=== PATIENT | female | born 1935 | race African-American/Black ===

== ENCOUNTER 2021-06-20 13:42 | Inpatient (IN) | payer MEDICARE, BC ==
[~2021-06-20] VITALS: Ht 152.4 cm; Wt 71.7 kg
--- NOTE | 2021-06-20 14:14 | NUR ---
RICKI DAUGHTER [phone] HX STROKE 2018 AFIB C-DIFF LIVER DMII ALL PCN IN DR. YRN CHERY IN [facility] [phone] MIGUEL [place]KE[place] DAUGHTER [phone]
--- NOTE | 2021-06-20 14:19 | NUR ---
DR. YRN CHERY IN [facility] [phone] OFFICE [phone]
--- NOTE | 2021-06-20 15:56 | NUR ---
R HAND #22G S/L; PATENT AND INTACT. BLOOD COLLECTED AND SENT TO LAB
[2021-06-20 16:20] LABS: BASOPHILS % (AUTO) 0.5 % (0.0-2.0); EOSINOPHILS % (AUTO) 0.7 % (0.0-6.0); HEMATOCRIT 41 % (33-45); HEMOGLOBIN 13.5 g/dL (11.5-14.8); LYMPHOCYTES # (AUTO) 1.9 K/uL (0.8-4.8); MEAN CORPUSCULAR HGB CONC 33 g/dl (31.0-36.0); MEAN CORPUSCULAR VOLUME 86 fL (82-100); MONOCYTES # (AUTO) 0.8 K/uL (0.1-1.30); MONOCYTES % (AUTO) 9.1 % (2.0-12.0); NEUTROPHILS # (AUTO) 5.6 K/uL (1.8-8.9); NEUTROPHILS % (AUTO) 66.7 % (43.0-81.0); PLATELET COUNT (AUTO) 341 K/uL (150-450); WHITE BLOOD COUNT (AUTO) 8.4 K/uL (4.3-11.0)
[2021-06-20 16:38] LABS: CALCIUM, SERUM 9.7 mg/dL (8.5-10.1); CREATININE 1.3 mg/dL (0.6-1.3); POTASSIUM 6.1 mmol/L (3.5-5.1)
[2021-06-20 16:52] LABS: ALBUMIN 2.7 g/dL (3.4-5.0); BILIRUBIN,DIRECT 3.8 mg/dL (0.0-0.2); BILIRUBIN,TOTAL 7.4 mg/dL (0.2-1.0); TOTAL PROTEIN, SERUM 8.1 g/dL (6.4-8.2)
[2021-06-20] MEDS ORDERED: IV NS 0.9% 250 ML IV ONE (17:01)
[2021-06-20] MEDS ORDERED: IOHEXOL-300 100 ML VIAL IV ONE (17:01)
[2021-06-20] MEDS ORDERED: CT SWABBABLE VALVE TRANS SET 1 EA INFUS.SET MC ONE (17:01)
--- NOTE | 2021-06-20 17:03 | NUR ---
ADLS DONE; PT KEPT CLEAN AND DRY
--- NOTE | 2021-06-20 17:03 | NUR ---
URINE COLLECTED AND SENT TO LAB
[2021-06-20] MEDS ORDERED: IV LR 1000 ML 1,000 ML IV ONE ×2 (18:00→18:30)
--- NOTE | 2021-06-20 18:26 | NUR ---
DAUGHTER MILY [phone]
--- NOTE | 2021-06-20 18:50 | NUR ---
MOVE SHEET SUBMITTED
--- NOTE | 2021-06-20 18:55 | NUR ---
[facility] CALLED MAP AND CHART MOUNTER PAGED.
[2021-06-20] MEDS ORDERED: ACETAMINOPHEN 325 MG TABLET PO PRN (19:30)
[2021-06-20] MEDS ORDERED: ONDANSETRON HCL/PF 4 MG/2 ML VIAL IVP PRN (19:30)
[2021-06-20] MEDS ORDERED: MAGNESIUM HYDROXIDE 30 ML UDC PO PRN (19:30)
[2021-06-20] MEDS ORDERED: Z GUARD REMEDY 4 OZ OINT TP PRN (19:30)
[2021-06-20] MEDS ORDERED: MAG HYDROX/AL HYDROX/SIMETH 30 ML UDC PO PRN (19:30)
[2021-06-20 19:32] LABS: BILIRUBIN,URINE MODERATE (NEGATIVE); COLOR,URINE YELLOW (YELLOW); LEUKOCYTE ESTERASE ,URINE NEGATIVE (NEGATIVE); NITRITE, URINE NEGATIVE (NEGATIVE); PH,URINE 5.5 (5.0-8.0); PROTEIN,URINE 30 mg/dl (NEGATIVE); UGLUCOSE >=1000 mg/dL (NEGATIVE); UROBILINOGEN,URINE 0.2 EU/dL (0.2)
[2021-06-20 19:34] LABS: BACTERIA,URINE Few /HPF (None Seen); RBC,URINE 0-3 /HPF (0-2); SQUAMOUS EPITHELIAL CELL,UR Few /HPF (None Seen); WBC,URINE 0-2 /HPF (0-3)
[2021-06-20 19:35] LABS: FINE GRANULAR CASTS,URINE Few /LPF (None Seen)
--- NOTE | 2021-06-20 19:42 | NUR ---
COVID ANTIGEN SWAB COLLECTED AND SENT TO LAB
--- NOTE | 2021-06-20 20:05 | NUR ---
PER DAUGHTER PT TAMY VACCINATED TODAY PREVIOUS VACCINE j&j IN AUGUST 2020
--- NOTE | 2021-06-20 23:23 | NUR ---
REPORT GIVEN TO CRIS MCDUFFIE 3 TRANQUILLITY.
[2021-06-20 23:35] VITALS: BP 136/75
--- NOTE | 2021-06-20 23:58 | NUR ---
MS RN NOTES PT IS A FINNISH 86 YEAR OLD FEMALE. A/O X2-3 ABLE TO MAKE NEED KNOWN. NO PAIN DISCOMFORT NOTED AT THIS TIME. PT NOTED WITH R HAND 22G RUINING D5 1/2 NS @ 75 ML/HR SKIN ASSESSMENT DONE PT NOTED WITH SACRAL REDNESS PICTURE TAKEN AND PLACED IN CHART. MEPILEX APPLIED TO PROTECT AREA. PT ABDOMEN NON TENDER AND SOFT. PT SKIN WARM TO THE TOUCH PT NOTED TO BE JAUNDICE NOTED WITH YELLOW SCLERA WELL. PT ORIENTED TO ROOM AND UNIT. ALL NEEDS ATTENDED TO AT THIS TIME.
[2021-06-21] VITALS: BP 136/75
[2021-06-21] MEDS ORDERED: FURO20TA4 PO (00:49)
[2021-06-21] MEDS ORDERED: INSU100V27 SQ (00:49)
[2021-06-21] MEDS ORDERED: EMPA10TA PO (00:49)
[2021-06-21] MEDS ORDERED: DULA0.75 SQ (00:49)
[2021-06-21] MEDS ORDERED: LOSA25TA27 PO (00:49)
[2021-06-21] MEDS ORDERED: PANT40TA49 PO (00:49)
[2021-06-21] MEDS ORDERED: LEVO50TA8 PO (00:49)
[2021-06-21] MEDS ORDERED: INSU100V7 SQ (00:49)
[2021-06-21] MEDS ORDERED: ESCI20TA PO (00:49)
[2021-06-21] MEDS ORDERED: FAMO20TA8 PO (00:49)
[2021-06-21] MEDS ORDERED: LATA2.5D2 EACHEYE (00:49)
[2021-06-21] MEDS ORDERED: ATOR80TA PO (00:49)
[2021-06-21] MEDS ORDERED: METO25TA6 PO (00:49)
[2021-06-21] MEDS ORDERED: APIX2.5T PO (00:49)
--- NOTE | 2021-06-21 01:29 | NUR ---
MS RN NOTES REPORTED TO PELLET PREPARATION OPERATOR DOCTOR REGARDING PT POTASSIUM LEVEL 6.1. PELLET PREPARATION OPERATOR DR REQUESTED A STAT REDRAW ALSO ORDERS MILD SLIDING SCALE ACHS PT IS DIABETIC. CONSENT WAS OBTAINED FROM DAUGHTER GLORIA FOR MRCP WO CONTRAST WELL. PER DAUGHTER PT WISHSES TO BE DNR AND THEY HAVE PAPERWORK AT [employer] INSTRUCTED DAUGHTER TO PLEASE BRING PAPERWORK IN. WILL ORDER A PIT LABORER CONSULT. PT IS NPO AT THIS TIME FOR MRCP SINCE MIDNIGHT. PT PUT ON TELE MONITOR FOR OBSERVATION POTASSIUM IS HIGH PT IS SR IN THE 80S AT THIS TIME.
[2021-06-21] MEDS ORDERED: DEXTROSE 50%-WATER 50 ML DISP.SYRIN IV PRN (01:30)
--- NOTE | 2021-06-21 01:35 | NUR ---
MS RN NOTES CALLED LAB TO CONFIRM THEY RECEIVED THE ORDER FOR THE STAT POTASSIUM CONFIRMED AND WILL COME AND DRAW IT. WILL CONTINUE TO MONITOR.
[2021-06-21] MEDS: BLOOD SUGAR DIAGNOSTIC 1 EACH STRIP IN SCH ×5 (01:43→22:50)
[2021-06-21] MEDS: IV D5/0.45 NACL 1,000 ML IV PRN ×2 (01:44→19:45)
--- NOTE | 2021-06-21 03:43 | NUR ---
MS RN NOTES LET RAILROAD SURVEYOR DOCTOR KNOW CRITICAL LAB RESULT POTASSIUM 2.[address] DUE TO PREVIOUS LEVEL BEING HIGH HAVE THE MORNING LABS DRAW NOW AND HAVE POTASSIUM REDRAWN TO CONFIRM PT POTASSIUM IS LOW IF REDRAW SHOWS LOW K GIVE 40 MEQ IV. PER RAILROAD SURVEYOR HOLD INSULIN FOR NOW IT COULD LOWER PTS POTASSIUM. CALLED LAB TO HAVE LABS DRAWN COIL WINDING SUPERVISOR AT PT BEDSIDE AT THIS TIME DRAWING LABS. PT IN NO DISTRESS AT THIS TIME SR 80S WILL CONTINUE TO MONITOR,
[2021-06-21 04:04] LABS: BASOPHILS % (AUTO) 0.4 % (0.0-2.0); EOSINOPHILS % (AUTO) 1.2 % (0.0-6.0); HEMATOCRIT 38 % (33-45); HEMOGLOBIN 12.6 g/dL (11.5-14.8); LYMPHOCYTES # (AUTO) 1.8 K/uL (0.8-4.8); LYMPHOCYTES % (AUTO) 24.8 % (20.0-44.0); MEAN CORPUSCULAR HGB CONC 33 g/dl (31.0-36.0); MEAN CORPUSCULAR VOLUME 84 fL (82-100); MONOCYTES # (AUTO) 0.7 K/uL (0.1-1.30); MONOCYTES % (AUTO) 9.4 % (2.0-12.0); NEUTROPHILS # (AUTO) 4.7 K/uL (1.8-8.9); NEUTROPHILS % (AUTO) 64.2 % (43.0-81.0); PLATELET COUNT (AUTO) 314 K/uL (150-450); WHITE BLOOD COUNT (AUTO) 7.3 K/uL (4.3-11.0)
[2021-06-21 04:25] LABS: ALANINE AMINOTRANSFERASE 320 U/L (12-78); ALBUMIN 2.5 g/dL (3.4-5.0); ASPARTATE AMINOTRANSFERASE 411 U/L (15-37); BILIRUBIN,DIRECT 5.5 mg/dL (0.0-0.2); BILIRUBIN,TOTAL 6.7 mg/dL (0.2-1.0); CALCIUM, SERUM 9.4 mg/dL (8.5-10.1); CARBON DIOXIDE 23 mmol/L (21-32); CHLORIDE 98 mmol/L (98-107); CREATININE 1.3 mg/dL (0.6-1.3); GLUCOSE 99 mg/dL (74-106); MAGNESIUM 1.9 mg/dL (1.8-2.4); PHOSPHORUS 2.8 mg/dL (2.5-4.9); SODIUM SERUM 137 mmol/L (136-145); TOTAL PROTEIN, SERUM 7.1 g/dL (6.4-8.2); UREA NITROGEN, BLOOD 15 mg/dL (7-18)
[2021-06-21 04:26] LABS: ALKALINE PHOSPHATASE 1216 U/L (46-116)
[2021-06-21 04:28] LABS: POTASSIUM 2.4 mmol/L (3.5-5.1)
[2021-06-21] MEDS ORDERED: POTASSIUM CL. PREMIX PERIPHER. 50 ML ONE ×2 (04:52→05:59)
[2021-06-21] MEDS ORDERED: POTASSIUM CHLORIDE 10 MEQ/50 ML PREMIXED IVPB FOR PERIPHERAL LINE IV ONE (05:00)
[2021-06-21] MEDS: Potassium Chloride 10 MEQ in IV D5W 50 ML IV SCH ×4 (05:10→10:04)
[2021-06-21 06:23] VITALS: BP 128/72
--- NOTE | 2021-06-21 06:49 | NUR ---
MS RN NOTES A/O X2-3 ABLE TO MAKE NEED KNOWN. NO PAIN DISCOMFORT NOTED AT THIS TIME. PT NOTED WITH R HAND 22G RUINING D5 1/2 NS @ 75 ML/HR PT ABDOMEN NON TENDER AND SOFT. PT SKIN WARM TO THE TOUCH PT NOTED TO BE JAUNDICE NOTED WITH YELLOW SCLERA WELL. PT NPO AT THIS TIME FOR MRCP WO CONTRAST.CONSENT OBTAINED PLACED IN CHART. ALL NEEDS ATTENDED TO. KEPT CLEAN AND DRY AT ALL TIMES. WILL ENDORSE CRAE TO DAY SHIFT NURSE.
[2021-06-21] MEDS: INSULIN REGULAR, HUMAN 100 UNIT/ML 3 ML VIAL SQ PRN ×3 (07:09→22:55)
--- NOTE | 2021-06-21 07:30 | NUR ---
MS RN OPENING NOTES RECEIVED PATIENT ON BED AWAKE AND A/O X3. ON ROOM AIR TOLERATING WELL. NO SOB NOTED. NOT IN DISTRESS. WITH NO COMPLAINTS OF PAIN OR DISCOMFORT AT THIS TIME. WITH IV ACCESS AT RIGHT HAND G22 WITH IVF D5 1/2NS AT 75ML/HR INFUSING WELL. SAFETY MEASURES IN PLACED. CALL LIGHT WITHIN REACH. BED ON LOWEST LOCKED POSITION, SIDE RAILS UP X2. WILL CONTINUE TO MONITOR.
[2021-06-21 08:00] VITALS: BP 141/73
[2021-06-21] MEDS: MORPHINE SULFATE INJ 2 MG/ML DISP.SYRIN IV PRN (08:01)
[2021-06-21 08:10] LABS: EOSINOPHILS % (MANUAL) 2 % (0-4); LYMPHOCYTES % (MANUAL) 28 % (16-48); MONOCYTES % (MANUAL) 10 % (0-11.0); NEUTROPHILS % (MANUAL) 60 (42-76)
[2021-06-21] MEDS: ENOXAPARIN SODIUM 40 MG/0.4 ML DISP.SYRIN SQ SCH ×2 (11:18→21:57)
[2021-06-21 16:00] VITALS: BP 158/70
[2021-06-21] MEDS: POTASSIUM CL. PREMIX PERIPHER. 50 ML IV SCH ×2 (16:26→19:40)
--- NOTE | 2021-06-21 19:30 | NUR ---
MS RN CLOSING NOTES PATIENT ON BED RESTING AND A/O X3. ON ROOM AIR TOLERATING WELL. NO SOB NOTED. NOT IN DISTRESS. WITH NO COMPLAINTS OF PAIN OR DISCOMFORT AT THIS TIME. WITH IV ACCESS AT RIGHT HAND G22 WITH IVF D5 1/2NS AT 75ML/HR INFUSING WELL. SAFETY MEASURES IN PLACED. CALL LIGHT WITHIN REACH. BED ON LOWEST LOCKED POSITION, SIDE RAILS UP X2. WILL ENDORSE TO NEXT SHIFT FOR NEL.
[2021-06-21 20:00] VITALS: BP 120/50
[2021-06-21] MEDS: FAMOTIDINE (20 MG) 20 MG TABLET PO SCH (21:55)
[2021-06-22] VITALS: BP 123/66
[2021-06-22] MEDS: POTASSIUM CL. PREMIX PERIPHER. 50 ML IV SCH ×2 (00:58→02:14)
[2021-06-22 04:00] VITALS: BP 162/80
[2021-06-22] MEDS: BLOOD SUGAR DIAGNOSTIC 1 EACH STRIP IN SCH ×4 (06:21→22:03)
[2021-06-22] MEDS: INSULIN REGULAR, HUMAN 100 UNIT/ML 3 ML VIAL SQ PRN ×4 (06:27→22:57)
[2021-06-22 06:37] LABS: BASOPHILS % (AUTO) 0.4 % (0.0-2.0); EOSINOPHILS % (AUTO) 1.3 % (0.0-6.0); HEMATOCRIT 36 % (33-45); LYMPHOCYTES # (AUTO) 1.4 K/uL (0.8-4.8); LYMPHOCYTES % (AUTO) 28.1 % (20.0-44.0); MEAN CORPUSCULAR HGB CONC 33 g/dl (31.0-36.0); MEAN CORPUSCULAR VOLUME 85 fL (82-100); MONOCYTES # (AUTO) 0.6 K/uL (0.1-1.30); MONOCYTES % (AUTO) 10.9 % (2.0-12.0); NEUTROPHILS # (AUTO) 3.1 K/uL (1.8-8.9); NEUTROPHILS % (AUTO) 59.3 % (43.0-81.0); PLATELET COUNT (AUTO) 270 K/uL (150-450); RED BLOOD CELL COUNT(AUTO) 4.27 MIL/uL (4.0-5.2); WHITE BLOOD COUNT (AUTO) 5.2 K/uL (4.3-11.0)
--- NOTE | 2021-06-22 07:04 | NUR ---
MS RN CLOSING NOTES: PATIENT IS CURRENTLY IN BED SLEEPING. PATIENT HAS NO S/S OF DISTRESS. RESPIRATION EVEN AND UNLABORED WITH EQUAL RISE AND FALL OF THE CHEST, ON ROOM AIR. NO BEHAVIORAL ISSUES THIS SHIFT. ALL PATIENT CARE NEEDS HAVE BEEN MET ANTICIPATED. WILL CONTINUE TO MONITOR AND ENDORSE TO AM SHIFT.
--- NOTE | 2021-06-22 07:59 | NUR ---
RN OPENING NOTES PATIENT IS AWAKE IN BED RESTING, A/O X2-3. NO S/S OF PAIN NOTED AT THIS TIME. ON ROOM AIR, NO DISTRESS OR SHORTNESS OF BREATH NOTED. IV ACCESS R HAND #22G, INTACT AND PATENT, FLUSHING WELL. FALL AND SAFETY MEASURES IN PLACE, BED ALARM ON, BED IN LOW AND LOCK POSITION, CALL LIGHT AND TABLE WITHIN EASY REACH, SIDE RAIL UP X2. WILL CONTINUE TO MONITOR. Addendum: 06/22/21 at 0809 by Perri Chandler RN NO IV ACCESS
[2021-06-22 08:00] VITALS: BP 136/75
[2021-06-22 08:00] LABS: ALANINE AMINOTRANSFERASE 283 U/L (12-78); ALBUMIN 2.3 g/dL (3.4-5.0); ASPARTATE AMINOTRANSFERASE 380 U/L (15-37); CALCIUM, SERUM 9.1 mg/dL (8.5-10.1); CARBON DIOXIDE 22 mmol/L (21-32); CHLORIDE 96 mmol/L (98-107); CREATININE 1.4 mg/dL (0.6-1.3); GLUCOSE 216 mg/dL (74-106); PHOSPHORUS 2.8 mg/dL (2.5-4.9); SODIUM SERUM 136 mmol/L (136-145); TOTAL PROTEIN, SERUM 6.5 g/dL (6.4-8.2); UREA NITROGEN, BLOOD 15 mg/dL (7-18)
[2021-06-22 08:23] LABS: ALKALINE PHOSPHATASE 1175 U/L (46-116)
[2021-06-22 08:24] LABS: POTASSIUM 2.8 mmol/L (3.5-5.1)
[2021-06-22] MEDS: LEVOTHYROXINE SODIUM 50 MCG TABLET PO SCH (09:09)
[2021-06-22] MEDS: PANTOPRAZOLE 40 MG TABLET.DR PO SCH (09:09)
[2021-06-22] MEDS: METOPROLOL TARTRATE 25 MG TABLET PO SCH (09:09)
[2021-06-22] MEDS: ENOXAPARIN SODIUM 40 MG/0.4 ML DISP.SYRIN SQ SCH ×2 (09:10→20:53)
--- NOTE | 2021-06-22 09:21 | NUR ---
RN NOTE PATIENT POTASSIUM IS 2.8, DOCTOR WAS NOTIFIED. CHARGE NURSE AWARE.
[2021-06-22] MEDS ORDERED: POTASSIUM CL. PREMIX PERIPHER. 50 ML IV SCH (10:00)
--- NOTE | 2021-06-22 13:00 | NUR ---
RN NOTES PATIENT POTASSIUM IS 2.8, IV POTASSIUM WAS STARTED TO BE INFUSED BUT PATIENT WAS NOT ABLE TO TOLERATE IV POTASSIUM, PATIENT WAS SCREAMING, CRYING AND COMPLAINING OF PAIN. DOCTOR WAS NOTIFIED AND DOCTOR ORDERED POTASSIUM PO 40MEQ X2.
[2021-06-22 16:00] VITALS: BP 139/68
[2021-06-22] MEDS: POTASSIUM CHLORIDE 20 MEQ TAB.PRT.SR PO SCH (16:35)
--- NOTE | 2021-06-22 19:08 | NUR ---
RN CLOSING NOTES PATIENT IS AWAKE IN BED RESTING, A/O X2-3. NO S/S OF PAIN NOTED AT THIS TIME. ON ROOM AIR, NO DISTRESS OR SHORTNESS OF BREATH NOTED. IV ACCESS L HAND #22G, INTACT AND PATENT, FLUSHING WELL BUT AFTER IV POTASSIUM PATIENT IS COMPLAINING OF PAIN, D5 NS @ 75ML/HR IS NOT INFUSING AT THE MOMENT, PATIENT REFUSED. PATIENT FALL AND SAFETY MEASURES IN PLACE, BED ALARM ON, BED IN LOW AND LOCK POSITION, CALL LIGHT AND TABLE WITHIN EASY REACH, SIDE RAIL UP X2. WILL ENDORSE TO WRAPPER CASHIER.
[2021-06-22 20:00] VITALS: BP 137/78
--- NOTE | 2021-06-22 20:30 | NUR ---
MS RN NOTE: LOVENOX HELD PER MD ORDER R/T ANTICIPATED ERCP PROCEDURE TOMORROW.
--- NOTE | 2021-06-22 20:40 | NUR ---
MS RN NOTE: SPOKE WITH PATIENT'S DAUGHTER, MIGUEL WAKEFIELD, CONSENTING TO ERCP WITH POSSIBLE SENT/POSSIBLE BIOPSY; AND MIDLINE INSERTION. SPOKE AT LENGTH WITH DAUGHTER WHO ASKED FOR GI MD TO CALL HER TOMORROW. HOWEVER, CONSENTS TO BOTH PROCEDURES IRRESPECTIVE OF MD CALL DR. GALINDO ALSO DISCUSSED THE ERCP PROCEDURE 2ND WITNESS, [place].
--- NOTE | 2021-06-22 20:53 | NUR ---
MS MCDUFFIE OPENING NOTE: RECEIVED REPORT AT PATIENT'S BEDSIDE. PATIENT IN NAD AND VSS. PATIENT'S EYES CLOSED, RR EVEN AND UNLABORED. BED IN LOW/LOCKED POSITION. SIDE RAILS UP X2. HOB ELEVATED SEMI-FOWLERS POSITION. CALL LIGHT WITHIN REACH. Addendum: 06/23/21 at 0038 by KAMILAH CAMPOS RN RECEIVED REPORT @ 3828 06/22/21
[2021-06-22] MEDS: FAMOTIDINE (20 MG) 20 MG TABLET PO SCH (22:00)
[2021-06-23] MEDS: MORPHINE SULFATE INJ 2 MG/ML DISP.SYRIN IV PRN (04:07)
--- NOTE | 2021-06-23 04:44 | NUR ---
MS RN NOTE: 0430 REMOVED PATIENT'S IV DUE TO HER EXTREME ANXIETY AND C/O PAIN WHEN ADMINISTERING MORPHINE ANALGESIC FOR PAIN AND SUBSEQUENT FLUSH. PREVIOUS SHIFT NURSE HAD ALSO REPORTED PATIENT REFUSING IV FLUIDS AND FLUSH OF PERIPHERAL LINE D/T PAIN AND ANXIETY SHE HAD RECEIVED IV K+ EARLIER CAUSING BURNING. TOOK 3 MINUTES APPLYING PRESSURE FOR BLEEDING TO STOP D/T PATIENT'S ELEVATED BLEEDING TIME. 0440 SPOKE WITH HOSPITALIST REGARDING LOVENOX DOSE HELD LAST EVENING AND PATIENT'S THE DISCERNIBLE ELEVATED BLEEDING TIME PREVIOUSLY NOTED. ORDER DVT PUMPS AND RESUME ANTI-COAGULANTS PER DR. GALINDO ORDERED.
[2021-06-23] MEDS: IV D5/0.45 NACL 1,000 ML IV PRN (06:22)
[2021-06-23] MEDS: INSULIN REGULAR, HUMAN 100 UNIT/ML 3 ML VIAL SQ PRN ×4 (07:01→22:28)
--- NOTE | 2021-06-23 07:30 | NUR ---
MS RN OPENING NOTES RECEIVED PATIENT IN BED WITH EYES CLOSED, ABLE TO AWAKEN. RR EVEN AND UNLABORED. NO COMPLAINT OF PAIN VERBALIZED AT THIS TIME. PATIENT PENDING MIDLINE PLACEMENT. NO IV ACCESS AT THIS TIME. PATIENT IS NPO EXCEPT MEDS, PENDING PROCEDURE. BED IN LOW/LOCKED POSITION. SIDE RAILS UP X2. HOB ELEVATED SEMI-FOWLERS POSITION. CALL LIGHT WITHIN REACH.
[2021-06-23] MEDS: BLOOD SUGAR DIAGNOSTIC 1 EACH STRIP IN SCH ×4 (07:38→22:28)
[2021-06-23 08:00] VITALS: BP 125/73
[2021-06-23 08:03] LABS: BASOPHILS % (AUTO) 0.8 % (0.0-2.0); EOSINOPHILS % (AUTO) 2.7 % (0.0-6.0); HEMATOCRIT 36 % (33-45); HEMOGLOBIN 11.9 g/dL (11.5-14.8); LYMPHOCYTES # (AUTO) 1.4 K/uL (0.8-4.8); LYMPHOCYTES % (AUTO) 25.4 % (20.0-44.0); MEAN CORPUSCULAR HGB CONC 33 g/dl (31.0-36.0); MEAN CORPUSCULAR VOLUME 85 fL (82-100); MONOCYTES # (AUTO) 0.5 K/uL (0.1-1.30); MONOCYTES % (AUTO) 9.6 % (2.0-12.0); NEUTROPHILS # (AUTO) 3.3 K/uL (1.8-8.9); NEUTROPHILS % (AUTO) 61.5 % (43.0-81.0); PLATELET COUNT (AUTO) 256 K/uL (150-450); RED BLOOD CELL COUNT(AUTO) 4.22 MIL/uL (4.0-5.2); WHITE BLOOD COUNT (AUTO) 5.4 K/uL (4.3-11.0)
[2021-06-23 08:06] LABS: ALBUMIN 2.3 g/dL (3.4-5.0); BILIRUBIN,DIRECT 6.7 mg/dL (0.0-0.2); BILIRUBIN,TOTAL 7.9 mg/dL (0.2-1.0); CALCIUM, SERUM 9.1 mg/dL (8.5-10.1); CREATININE 1.3 mg/dL (0.6-1.3); POTASSIUM 3.4 mmol/L (3.5-5.1); TOTAL PROTEIN, SERUM 6.5 g/dL (6.4-8.2)
[2021-06-23] MEDS: ENOXAPARIN SODIUM 40 MG/0.4 ML DISP.SYRIN SQ SCH ×2 (09:00→21:00)
--- NOTE | 2021-06-23 09:00 | NUR ---
RN NOTES 0900 LOVENOX HELD, PENDING ERCP TODAY. HGB- 12, HCT- 36.
[2021-06-23] MEDS: LEVOTHYROXINE SODIUM 50 MCG TABLET PO SCH (09:05)
[2021-06-23] MEDS: METOPROLOL TARTRATE 25 MG TABLET PO SCH (09:05)
[2021-06-23] MEDS: PANTOPRAZOLE 40 MG TABLET.DR PO SCH (09:05)
[2021-06-23] MEDS: POTASSIUM CHLORIDE 20 MEQ TAB.PRT.SR PO SCH ×2 (09:06→16:31)
--- NOTE | 2021-06-23 10:38 | NUR ---
WOUND CARE CONSULT: PT PRESENTS WITH SOME DISCOLORATION TO PUBIC REGION AND SCARRING/DISCOLORATION TO BUTTOCKS, PRESENT ON ADMISSION. PT IS INCONTINENT AND IS ABLE TO ASSIST WITH TURNING AND REPOSITIONING IN BED. RECOMMENDATIONS MADE FOR SKIN PROTECTION. DISCUSSED WITH NURSING STAFF. MD IN AGREEMENT WITH PLAN OF CARE.
--- NOTE | 2021-06-23 14:17 | NUR ---
SS consult received consult for code status. Pt. gave permission to call her daughter Heidi [[phone]]. Daughter is aware of pt.'s code status. Heidi stated she does not want pt. to be intubated if anything is ever to happen. No to DNI. Daughter stated yes to DNR.
[2021-06-23 16:00] VITALS: BP 135/67
--- NOTE | 2021-06-23 19:00 | NUR ---
MS RN CLOSING NOTES PATIENT IN BED WITH EYES CLOSED, ABLE TO BE AWAKE. RR EVEN AND UNLABORED. NO COMPLAINT OF PAIN VERBALIZED AT THIS TIME. KOFI MIDLINE IN PLACE WITH D5 1/2 NS RUNNING @ 75ML/HR. PATIENT IS NPO EXCEPT MEDS, PENDING PROCEDURE TOMORROW AM, 06/24/2021. ALL ORDERS CARRIED OUT AND NEEDS MET. BED IN LOW/LOCKED POSITION. SIDE RAILS UP X2. HOB ELEVATED SEMI-FOWLERS POSITION. CALL LIGHT WITHIN REACH. WILL ENDORSE TO BLANK DRILLER NURSE FOR NEL
[2021-06-23] MEDS: FAMOTIDINE (20 MG) 20 MG TABLET PO SCH (21:46)
[2021-06-23 22:00] VITALS: BP 130/72
--- NOTE | 2021-06-23 22:30 | NUR ---
RN NOTES: PLACED CALL TO DR. VENEGAS ABOUT PT. GOING TO HAVE ERCP PROCEUDRS IN 06/24/21 AM , REGRADING MED LOVENOX, LOVENOX HOLD PER MD ORDERS , DUR TO ERCP PROCEDURES PER MD ORDERS. PT. REFUSED NIGHT MEDS PEPCID, AND BLOOD SUGAR 173 AND PT. REFUSED INSULLIN COVERAGE , ENCOURAGE X3 PT. STRONGLY REFUSED AND MD MADE AWARE.
[2021-06-24 06:30] LABS: EOSINOPHILS % (AUTO) 3.2 % (0.0-6.0); HEMATOCRIT 35 % (33-45); HEMOGLOBIN 11.7 g/dL (11.5-14.8); LYMPHOCYTES # (AUTO) 1.8 K/uL (0.8-4.8); LYMPHOCYTES % (AUTO) 36.9 % (20.0-44.0); MEAN CORPUSCULAR HGB CONC 33 g/dl (31.0-36.0); MEAN CORPUSCULAR VOLUME 85 fL (82-100); MONOCYTES # (AUTO) 0.4 K/uL (0.1-1.30); MONOCYTES % (AUTO) 7.4 % (2.0-12.0); NEUTROPHILS # (AUTO) 2.4 K/uL (1.8-8.9); NEUTROPHILS % (AUTO) 51.5 % (43.0-81.0); PLATELET COUNT (AUTO) 238 K/uL (150-450); RED BLOOD CELL COUNT(AUTO) 4.14 MIL/uL (4.0-5.2); WHITE BLOOD COUNT (AUTO) 4.7 K/uL (4.3-11.0)
--- NOTE | 2021-06-24 06:35 | NUR ---
RN NOTES : PT. IS NPO EXCEPT MEDS FOR ERCP PROCEDURES PER MD ORDERS , ENDORSE TO DAY NURES FOR CONTINUITY CARE.
[2021-06-24] MEDS: BLOOD SUGAR DIAGNOSTIC 1 EACH STRIP IN SCH ×4 (06:43→22:29)
[2021-06-24 07:21] LABS: ALBUMIN 2.3 g/dL (3.4-5.0); BILIRUBIN,TOTAL 9.7 mg/dL (0.2-1.0); CALCIUM, SERUM 9.2 mg/dL (8.5-10.1); CREATININE 1.2 mg/dL (0.6-1.3); MAGNESIUM 1.8 mg/dL (1.8-2.4); PHOSPHORUS 2.2 mg/dL (2.5-4.9); POTASSIUM 4.7 mmol/L (3.5-5.1); TOTAL PROTEIN, SERUM 6.5 g/dL (6.4-8.2)
[2021-06-24] MEDS: INSULIN REGULAR, HUMAN 100 UNIT/ML 3 ML VIAL SQ PRN ×4 (07:25→22:30)
[2021-06-24 08:00] VITALS: BP 161/77
[2021-06-24] MEDS: POTASSIUM CHLORIDE 20 MEQ TAB.PRT.SR PO SCH ×2 (09:00→17:00)
[2021-06-24] MEDS: ENOXAPARIN SODIUM 40 MG/0.4 ML DISP.SYRIN SQ SCH ×2 (09:00→21:00)
[2021-06-24] MEDS: LEVOTHYROXINE SODIUM 50 MCG TABLET PO SCH (09:00)
[2021-06-24] MEDS: METOPROLOL TARTRATE 25 MG TABLET PO SCH (09:00)
[2021-06-24] MEDS: PANTOPRAZOLE 40 MG TABLET.DR PO SCH (09:00)
--- NOTE | 2021-06-24 12:45 | NUR ---
m/s wardrobe stylist: notes dr. valentine (gi) called with order to keep pt npo and scheduled for ercp at [address] lynch, pt had lunch and says to keep her npo now. order carried out. pt made aware. cn and brynn ibrahim (acnp) made aware.
[2021-06-24] MEDS ORDERED: NEUTRA PHOS 1 POWD.PACKET PO ONE (13:00)
--- NOTE | 2021-06-24 14:00 | NUR ---
m/s mechanism inspector: notes eric (daughter) notified and made aware re: ercp scheduled at 1900 tonight, spoke to her over the phone.
[2021-06-24] MEDS ORDERED: IOHEXOL 240MG/ML 50 ML IV ONE ×2 (14:09→20:03)
[2021-06-24] MEDS ORDERED: INDOMETHACIN 50 MG SUPP.RECT ONE (14:10)
[2021-06-24] MEDS ORDERED: ANESTHESIA TRAY IN PYXIS 1 EA TRAY MC ONE (14:10)
[2021-06-24 16:00] VITALS: BP 154/75
--- NOTE | 2021-06-24 17:00 | NUR ---
m/s setter juice packaging machines: notes incontinent care rendered. kept clean and dry. pt remains npo since after lunch. pt for ercp tonight. instructed to call for assistance. will continue to monitor.
--- NOTE | 2021-06-24 18:37 | NUR ---
m/s commercial hvac technician: notes pt picked up by o.r. nurses via bed at this time for ercp procedure with dr. lynch.
--- NOTE | 2021-06-24 19:00 | NUR ---
m/s glass lathe operator: notes pt still in the o.r. report given to leonarda (rn) for continuity of care.
[2021-06-24] MEDS ORDERED: CLINDAMYCIN 900 MG/6 ML VIAL ONE (19:06)
--- NOTE | 2021-06-24 22:18 | NUR ---
MS RN NOTES PT BACK FROM OR S/P PANCREATIC STENT PLACEMENT. PT A/0 X3 IN NO PAIN OR DISTRESS NOTED. VITAL SIGNS STABLE. ORDERED REVIEWED AND CARRIED OUT. CALL LIGHT WITHIN. REACH. PT NOTED WITH PICC LINE ION THE L ARM PATENT AND FLUSHED WELL.
[2021-06-24] MEDS: FAMOTIDINE (20 MG) 20 MG TABLET PO SCH (22:23)
[2021-06-24] MEDS: IV LR 1000 ML 1,000 ML IV PRN (22:29)
[2021-06-24 23:17] VITALS: BP 110/73
[2021-06-25] MEDS: BLOOD SUGAR DIAGNOSTIC 1 EACH STRIP IN SCH ×2 (06:31→12:48)
[2021-06-25] MEDS: INSULIN REGULAR, HUMAN 100 UNIT/ML 3 ML VIAL SQ PRN ×2 (06:45→12:49)
[2021-06-25] MEDS: IV LR 1000 ML 1,000 ML IV PRN (06:50)
--- NOTE | 2021-06-25 06:58 | NUR ---
MS RN NOTES PATIENT IN BED WITH EYES CLOSED, ABLE TO BE AWAKE. RR EVEN AND UNLABORED. NO COMPLAINT OF PAIN VERBALIZED AT THIS TIME. KOFI MIDLINE IN PLACE WITH LR RUNNING @ 100 ML/HR. PATIENT IS NPO . PT S/P ERCP WITH PANCREATIC STENT PLACEMENT ALL ORDERS CARRIED OUT AND NEEDS MET. BED IN LOW/LOCKED POSITION. SIDE RAILS UP X2. HOB ELEVATED SEMI-FOWLERS POSITION. CALL LIGHT WITHIN REACH. WILL ENDORSE CARE TO DAY SHIFT NURSE.
--- NOTE | 2021-06-25 07:25 | NUR ---
MS RN OPENING NOTE Patient in bed, asleep. A/O x 3, [place] Islander speaking. On room air, breathing evenly and unlabored. No SOB or s/s of distress noted. IV access on KOFI midline infusing R at 100 ml/hr. Safety precautions in place: bed in low, locked position; siderails up x 2; call light within reach. Will continue to monitor.
[2021-06-25 07:29] LABS: HEMATOCRIT 35 % (33-45); HEMOGLOBIN 11.5 g/dL (11.5-14.8); MEAN CORPUSCULAR HGB CONC 33 g/dl (31.0-36.0); MEAN CORPUSCULAR VOLUME 86 fL (82-100); PLATELET COUNT (AUTO) 239 K/uL (150-450); RED BLOOD CELL COUNT(AUTO) 4.05 MIL/uL (4.0-5.2); WHITE BLOOD COUNT (AUTO) 7.6 K/uL (4.3-11.0)
[2021-06-25 07:53] LABS: CALCIUM, SERUM 8.9 mg/dL (8.5-10.1); CREATININE 1.1 mg/dL (0.6-1.3); MAGNESIUM 1.6 mg/dL (1.8-2.4); PHOSPHORUS 3.8 mg/dL (2.5-4.9); POTASSIUM 4.5 mmol/L (3.5-5.1)
[2021-06-25 08:10] LABS: ALBUMIN 2.1 g/dL (3.4-5.0); BILIRUBIN,DIRECT 9.6 mg/dL (0.0-0.2); BILIRUBIN,TOTAL 12.3 mg/dL (0.2-1.0); TOTAL PROTEIN, SERUM 6.2 g/dL (6.4-8.2)
[2021-06-25 08:53] VITALS: BP 142/82
[2021-06-25] MEDS: METOPROLOL TARTRATE 25 MG TABLET PO SCH (09:00)
[2021-06-25] MEDS ORDERED: PANTOPRAZOLE 40 MG VIAL IV SCH (09:00)
[2021-06-25] MEDS: ENOXAPARIN SODIUM 40 MG/0.4 ML DISP.SYRIN SQ SCH (09:00)
[2021-06-25] MEDS: POTASSIUM CHLORIDE 20 MEQ TAB.PRT.SR PO SCH (09:00)
[2021-06-25] MEDS: LEVOTHYROXINE SODIUM 50 MCG TABLET PO SCH (09:00)
--- NOTE | 2021-06-25 09:03 | NUR ---
RN NOTE Held PO meds and Lovenox as per Wilder Mckee NP.
[2021-06-25] MEDS: MORPHINE SULFATE INJ 2 MG/ML DISP.SYRIN IV PRN (09:12)
--- NOTE | 2021-06-25 09:12 | NUR ---
RN NOTE As per patient's daughter who translates for patient, patient complains of generalized pain. PRN Morphine given.
[2021-06-25] MEDS: Magnesium 1GM/D5W 100ML PREMIX 100 ML IV SCH ×2 (10:49→11:55)
[2021-06-25] MEDS ORDERED: HYDROMORPHONE 1 MG/1 ML DISP.SYRIN IV ONE (12:30)
--- NOTE | 2021-06-25 12:31 | NUR ---
RN NOTE As per daughter who translates for patient, Morphine not effective and patient still has pain, Wilder Mckee NP notified and ordered Dilaudid 0.5 mg one time.
[2021-06-25 13:01] LABS: LYMPHOCYTES % (MANUAL) 11 % (16-48); MONOCYTES % (MANUAL) 4 % (0-11.0); NEUTROPHILS % (MANUAL) 85 (42-76)
[2021-06-25 16:15] VITALS: BP 105/68
--- NOTE | 2021-06-25 16:40 | NUR ---
DISCHARGE NOTE Received order for discharge. Patient is A/O x 3, Botswanan speaking. Stable on room air, breathing evenly and unlabored. No SOB or s/s of distress noted. Discharge instructions given to daughter, verbalized understanding. Patient belonging accounted for. IV access removed, catheter tip intact; pressure dressing applied, nosigns of bleeding noted. Exitcare folder given to EMT. Patient left via ambulance with 2 soft crab shedder present.
== END 2021-06-25 16:40 | disposition home health service (06) | DRG 444 ==
LOC: ER 13:44 → MED 21:48
PROVIDERS: ADMIT Internal Medicine; ATTEND Nurse Practitioner Family
PROC: 05HF33Z Insertion of Infusion Device into Left Cephalic Vein, Percutaneous Approach (ICD-10-PCS; principal; 2021-06-23)
PROC: 0F7D8DZ Dilation of Pancreatic Duct with Intraluminal Device, Via Natural or Artificial Opening Endoscopic (ICD-10-PCS; 2021-06-24)
PROC: BF111ZZ Fluoroscopy of Biliary and Pancreatic Ducts using Low Osmolar Contrast (ICD-10-PCS; 2021-06-24)
DX: K83.1 Obstruction of bile duct (principal); E43 Unspecified severe protein-calorie malnutrition; G93.41 Metabolic encephalopathy; B17.9 Acute viral hepatitis, unspecified; E87.6 Hypokalemia; I48.91 Unspecified atrial fibrillation; Z79.01 Long term (current) use of anticoagulants; Z88.0 Allergy status to penicillin; E78.5 Hyperlipidemia, unspecified; E11.9 Type 2 diabetes mellitus without complications; R74.01 Elevation of levels of liver transaminase levels; I10 Essential (primary) hypertension; E03.9 Hypothyroidism, unspecified; Z79.890 Hormone replacement therapy; Z79.4 Long term (current) use of insulin; I44.0 Atrioventricular block, first degree; K76.0 Fatty (change of) liver, not elsewhere classified; Z79.899 Other long term (current) drug therapy; Z90.49 Acquired absence of other specified parts of digestive tract; Z79.84 Long term (current) use of oral hypoglycemic drugs
CPT/HCPCS: 36415; 74018; 74181-TC; 76705-TC; 80048-TC; 80074; 80076-TC; 81001; 82140-TC; 82150-TC; 82247-TC; 82248-TC; 82962-TC; 83605-TC; 83690-TC; 83735-TC; 84100-TC; 84132-TC; 85025-TC; 85610-TC; 85730-TC; 87081-TC; C2625; C9113; G0378; J0330; J1170; J1650; J1815; J2270; J2405; J2704; J2765; J3475; J3480; J3490; J7030; J7050; J7060; J7120; Q9966; Q9967